=== PATIENT | female | born 1950 | race Caucasian/White ===

== ENCOUNTER 2017-08-04 10:15 | Outpatient (RCR) | payer OTHER, SELFPAY ==
--- NOTE | 2017-07-12 11:32 | PT.OTN ---
Current Diagnoses Abnormal posture (07/12/17) Weakness (07/12/17) Strain of muscle, fascia and tendon of lower back, subsequent encounter (07/12/17) Arthrodesis status (07/12/17) Transition note: On July 11, 2017 our therapy services consisting of Speech, Occupational, and Physical Therapy transitioned from the [employer] electronic documentation system to a new [employer] electronic documentation system.?? All documentation prior to July 11 can be found under [employer] saved data. From July 11 forward all medical record documentation will be in [employer] 6.1.
--- NOTE | 2017-07-12 16:12 | PT.OTN ---
Current Diagnoses Abnormal posture (07/12/17) Weakness (07/12/17) Strain of muscle, fascia and tendon of lower back, subsequent encounter (07/12/17) Arthrodesis status (07/12/17) Physical Therapy Treatment Note PT-OP-A Visit Information Start: 07/12/17 15:30 Freq: Status: Active Protocol: Activity Type Activity Date Activity User E-Sign Co-Sign Detail Recorded Client Recorded Date Recorded By Document 07/12/17 15:32 [facility] [email or web address] 07/12/17 16:01 [facility] 07/12/17 15:32 Out-Patient Physical Therapy Visit Information [Visit Information] -Visit Type Progress Note -Visit Note visit -Visit Start Time 11:45 -Visit Stop Time 12:25 -Total Visit Minutes 40 -Number of LOAN DOCUMENTS CLOSER Visits 1 -Visit Number 15 PT-OP-C Subjective Start: 07/12/17 15:30 Freq: Status: Active Protocol: Activity Type Activity Date Activity User E-Sign Co-Sign Detail Recorded Client Recorded Date Recorded By Document 07/12/17 15:32 [facility] [email or web address] 07/12/17 16:01 [facility] 07/12/17 15:32 OP-PT Subjective [Patient Comments] -Patient Comments No new complaints -Patient Reported Progress Same PT-OP-S Aquatic Treatment Start: 07/12/17 15:30 Freq: Status: Active Protocol: Activity Type Activity Date Activity User E-Sign Co-Sign Detail Recorded Client Recorded Date Recorded By Document 07/12/17 15:32 TMS [email or web address] 07/12/17 16:01 [facility] 07/12/17 15:32 Aquatics Treatment [Pool Entry/Exit] -Pool Entry/Exit Method Stairs -Assistance Independent [Water Walking] Forwards -Water Level Chest Level -Walking Equipment Resistance Fins -Level of Assistance Independent [Lower Extremity Exercises] 3 -Details Hip Circumduction -Body Position Standing -Water Level Chest Level -Equipment Resistance Fins -Reps/Duration 20 2 -Details Hip Flexion -Body Position Standing -Water Level Chest Level -Equipment Resistance Fins 1 -Details Hip Abduction -Body Position Standing -Water Level Chest Level -Equipment Resistance Fins -Reps/Duration 20 [Lower Extremity Stretches] 6 -Details Calf stretch -Body Position Standing -Reps/Duration x1/30 seconds -Comments on step 5 -Details Quad stretch -Body Position Standing -Reps/Duration x2/30 seconds 4 -Details Hamstring -Body Position Standing -Water Level Chest Level -Equipment Small Noodle -Reps/Duration x2/ 30 seconds -Comments Including IT, hip AB [Upper Extremity Exercises] 7 -Details Shoulder Abduction -Body Position Standing -Water Level Chest Level -Reps/Duration x 10 -Comments Medium barbells [[place] Activities] -[place] Activities Bicycle [place] Hip Abduction/ Adduction Sit Kicks -Equipment Belt -Duration 8 rounds of 30 :30 -Comments Tethered PT-OP-T Assessment and Plan Start: 07/12/17 16:03 Freq: Status: Active Protocol: Activity Type Activity Date Activity User E-Sign Co-Sign Detail Recorded Client Recorded Date Recorded By Document 07/12/17 16:04 [facility] [email or web address] 07/12/17 16:12 [facility] 07/12/17 16:04 Physical Therapy Assessment [Assessment Summary] -Assessment Pt. needs frequent cues for posture. Pt . complained of tightness in low back at end of treatment, states this is normal for me . Enjoying being able to get some aerobic exercise in the pool. Physical Therapy Plan [Frequency and Duration] -Frequency of Treatment 2x/Week -Duration of Treatment 3 months from -Plan of Care Start Date 04/25/17 -Plan of Care End Date 07/22/17 [Next Visit Focus/Plan] -Next Visit Plan Continue to progress core strength, endurance.
--- NOTE | 2017-07-17 15:49 | PT.OTN ---
Current Diagnoses Abnormal posture (07/17/17) Weakness (07/17/17) Strain of muscle, fascia and tendon of lower back, subsequent encounter (07/17/17) Arthrodesis status (07/17/17) Physical Therapy Treatment Note PT-OP-A Visit Information Start: 07/12/17 15:30 Freq: Status: Active Protocol: Activity Type Activity Date Activity User E-Sign Co-Sign Detail Recorded Client Recorded Date Recorded By Document 07/17/17 15:26 [facility] [email or web address] 07/17/17 15:49 [facility] 07/17/17 15:26 Out-Patient Physical Therapy Visit Information [Visit Information] -Visit Type Treatment Note -Visit Note visits -Visit Start Time 11:00 -Visit Stop Time 11:45 -Total Visit Minutes 45 -Visit Number -Number of [employer] Visits 2 PT-OP-C Subjective Start: 07/12/17 15:30 Freq: Status: Active Protocol: Activity Type Activity Date Activity User E-Sign Co-Sign Detail Recorded Client Recorded Date Recorded By Document 07/17/17 15:26 [place] [id number] 07/17/17 15:49 [facility] 07/17/17 15:26 OP-PT Subjective [Patient Comments] -Patient Comments Pt. reports tightness in back is narrower, it's not as wide of a band. PT-OP-S Aquatic Treatment Start: 07/12/17 15:30 Freq: Status: Active Protocol: Activity Type Activity Date Activity User E-Sign Co-Sign Detail Recorded Client Recorded Date Recorded By Document 07/17/17 15:26 [facility] [email or web address] 07/17/17 15:49 [facility] 07/17/17 15:26 Aquatics Treatment [Pool Entry/Exit] -Pool Entry/Exit Method Stairs -Assistance Independent [Water Walking] Forwards -Water Level Chest Level -Walking Equipment Resistance Fins -Level of Assistance Independent [Lower Extremity Exercises] 3 -Details Hip Circumduction -Body Position Standing -Water Level Chest Level -Equipment Resistance Fins -Reps/Duration 20 2 -Details Hip Flexion -Body Position Standing -Water Level Chest Level -Equipment Resistance Fins 1 -Details Hip Abduction -Body Position Standing -Water Level Chest Level -Equipment Resistance Fins -Reps/Duration 20 [Lower Extremity Stretches] 6 -Details Calf stretch -Body Position Standing -Reps/Duration x1/30 seconds -Comments on step 4 -Details Hamstring -Body Position Standing -Water Level Chest Level -Equipment Small Noodle -Reps/Duration x2/ 30 seconds -Comments Including IT, hip AB [Upper Extremity Exercises] 7 -Details Shoulder Abduction/horiz . AB/AD -Body Position Standing, unilateral and bilateral -Water Level Chest Level -Reps/Duration x 10 -Comments Closed paddles [Spinal Exercises] 1 -Details [place] Stabilization -Water Level [place] -Equipment Medium barbells [[place] Activities] -[place] Activities Bicycle Cross [place] Hip Abduction/ Adduction Sit Kicks -Equipment Belt -Duration 8 rounds of 30 :30 -Comments Tethered PT-OP-T Assessment and Plan Start: 07/12/17 16:03 Freq: Status: Active Protocol: Activity Type Activity Date Activity User E-Sign Co-Sign Detail Recorded Client Recorded Date Recorded By Document 07/17/17 15:26 [facility] [email or web address] 07/17/17 15:49 [facility] 07/17/17 15:26 Physical Therapy Assessment [Assessment Summary] -Assessment Pt. needs cues to stay on task , quite talkative. No complaints of pain with exercises, tightness in back diminishing. Physical Therapy Plan [Frequency and Duration] -Frequency of Treatment 2x/Week -Duration of Treatment 3 months from -Plan of Care Start Date 04/25/17 -Plan of Care End Date 07/22/17 [Next Visit Focus/Plan] -Next Visit Plan Continue to progress core strength, endurance.
--- NOTE | 2017-07-21 16:30 | PT.OTN ---
Current Diagnoses Abnormal posture (07/21/17) Weakness (07/21/17) Strain of muscle, fascia and tendon of lower back, subsequent encounter (07/21/17) Arthrodesis status (07/21/17) Physical Therapy Treatment Note PT-OP-A Visit Information Start: 07/12/17 15:30 Freq: Status: Active Protocol: Document 07/21/17 16:19 [facility] (Rec: 07/21/17 16:30 [facility] [id number]) Out-Patient Physical Therapy Visit Information Visit Information Visit Type Treatment Note Visit Note Visit Start Time 11:45 Visit Stop Time 12:30 Total Visit Minutes 45 Visit Number PT-OP-C Subjective Start: 07/12/17 15:30 Freq: Status: Active Protocol: Document 07/21/17 16:19 [facility] (Rec: 07/21/17 16:30 [facility] [id number]) OP-PT Subjective Patient Comments Patient Comments no new c/o. Reports aquatic PT is helpful PT-OP-S Aquatic Treatment Start: 07/12/17 15:30 Freq: Status: Active Protocol: Document 07/21/17 16:19 [facility]AK (Rec: 07/21/17 16:30 [facility] [id number]) Aquatics Treatment Pool Entry/Exit Pool Entry/Exit Method Stairs Assistance Independent Water Walking Marching Water Level Chest Level Walking Equipment Resistance Fins Sideways Water Level Chest Level Walking Equipment Resistance Fins Level of Assistance Verbal Cues Comments increased speed Backwards Water Level Chest Level Walking Equipment Resistance Fins: lg Level of Assistance Verbal Cues Forwards Water Level Chest Level Walking Equipment Resistance Fins: lg Level of Assistance Verbal Cues Comments jogging Lower Extremity Exercises 3 Details Hip Circumduction Body Position Standing Water Level Chest Level Equipment Resistance Fins Reps/Duration 20 2 Details Hip Flexion Body Position Standing Water Level Chest Level Equipment Resistance Fins Lower Extremity Stretches 4 Details Hamstring Body Position Standing Water Level Chest Level Equipment Small Noodle Reps/Duration x2/ 30 seconds Comments Including IT, hip AB Upper Extremity Exercises 7 Details shld hor ab/ad, flex/ext Body Position Standing Water Level Chest Level Reps/Duration x10 anders, unil Comments Closed paddles Spinal Exercises 1 Details [place] Stabilization Water Level [place] Equipment Medium barbells [place] Activities [place] Activities Cross Country Running Hip Abduction/Adduction Sit Kicks Equipment Belt Duration 8 rounds of 30:30 Comments Tethered PT-OP-T Assessment and Plan Start: 07/12/17 16:03 Freq: Status: Active Protocol: Document 07/21/17 16:19 [facility] (Rec: 07/21/17 16:30 [facility] [id number]) Physical Therapy Assessment Assessment Summary Assessment Progressing with increased resistance, increased speed of water walking Physical Therapy Plan Frequency and Duration Frequency of Treatment 2x/Week Duration of Treatment 3 months from 04/25/17 Plan of Care Start Date 04/25/17 Plan of Care End Date 07/22/17 Next Visit Focus/Plan Next Visit Plan Progression of aquatic exercises for pain management, strengthening, dynamic lumbar stabilization. Consider progression to swim strokes
--- NOTE | 2017-08-04 15:45 | PT.OTN ---
Current Diagnoses Abnormal posture (08/04/17) Weakness (08/04/17) Strain of muscle, fascia and tendon of lower back, subsequent encounter (08/04/17) Arthrodesis status (08/04/17) Physical Therapy Treatment Note PT-OP-A Visit Information Start: 07/12/17 15:30 Freq: Status: Active Protocol: Document 08/04/17 11:00 [facility] (Rec: 08/04/17 15:45 [facility] [id number]) Out-Patient Physical Therapy Visit Information Visit Information Visit Type Treatment Note Visit Note Visit Start Time 10:15 Visit Stop Time 11:00 Total Visit Minutes 45 Visit Number Number of BARTACKER Visits 0 PT-OP-C Subjective Start: 07/12/17 15:30 Freq: Status: Active Protocol: Document 08/04/17 11:00 [facility]AK (Rec: 08/04/17 15:45 [facility] [id number]) OP-PT Subjective Patient Comments Patient Comments Glad to return to aquatic PT after being gone. PT-OP-S Aquatic Treatment Start: 07/12/17 15:30 Freq: Status: Active Protocol: Document 08/04/17 11:00 [facility]AK (Rec: 08/04/17 15:45 [facility] [id number]) Aquatics Treatment Pool Entry/Exit Pool Entry/Exit Method Stairs Assistance Independent Water Walking Lunge Walk Water Level Chest Level Walking Equipment Resistance Fins: lg Level of Assistance Verbal Cues Marching Water Level Chest Level Walking Equipment Resistance Fins; large Sideways Water Level Chest Level Walking Equipment Resistance Fins; large Level of Assistance Verbal Cues Comments increased speed Backwards Water Level Chest Level Walking Equipment Resistance Fins: lg Level of Assistance Verbal Cues Forwards Water Level Chest Level Walking Equipment Resistance Fins: lg Level of Assistance Verbal Cues Comments jogging Lower Extremity Exercises 3 Details Hip Circumduction Body Position Standing Water Level Chest Level Equipment Resistance Fins;lg Reps/Duration 20 2 Details Hip Flexion Body Position Standing Water Level Chest Level Equipment Resistance Fins; lg 1 Details Hip Abduction Body Position Standing Water Level Chest Level Equipment Resistance Fins: lg Reps/Duration 20 Lower Extremity Stretches 6 Details Calf stretch Body Position Standing Reps/Duration x1/30 seconds Comments at wall 4 Details Hamstring Body Position Standing Water Level Chest Level Equipment Small Noodle Reps/Duration x2/ 30 seconds Comments Including IT, hip AB Spinal Exercises 1 Details [place] Stabilization Water Level Accident Equipment Medium barbells Accident Activities Accident Activities Cross [place] Running Hip Abduction/Adduction Sit Kicks Equipment Belt Duration 12 rounds of 30:30 Comments Tethered PT-OP-T Assessment and Plan Start: 07/12/17 16:03 Freq: Status: Active Protocol: Document 08/04/17 11:00 [facility] (Rec: 08/04/17 15:45 [facility] [id number]) Physical Therapy Assessment Assessment Summary Assessment Patient needs frequent cues due to distractability, but overall progressing with aquatic exercise program. Physical Therapy Plan Frequency and Duration Frequency of Treatment 2x/Week Duration of Treatment 3 months from 04/25/17 Plan of Care Start Date 04/25/17 Plan of Care End Date 07/22/17 Next Visit Focus/Plan Next Visit Plan Next visit assess patient progress with aquatic exercise , determine need for furthre aquatic PT; patient to schedule in approx 3-4 wks. Please Sign and Return: I have reviewed this Plan of Care and certify that the skilled therapy services above are required to meet the patient???s needs. Physician Signature Date Printed Name and Credentials Clinical Instructor Signature Printed Name and Credentials
--- NOTE | 2017-10-11 09:07 | PT.OPDS ---
Current Diagnoses Abnormal posture (08/04/17) Weakness (08/04/17) Strain of muscle, fascia and tendon of lower back, subsequent encounter (08/04/17) Arthrodesis status (08/04/17) Provider Visit Care Team Role Provider Type Bruce Bland MD Family Provider Physician Primary Care Provider Specialty: Internal Medicine Address: [address] [place] [address], [id number] Email: Tremaine Cline MD Attending Provider Physician Specialty: Orthopedic Surgery Address: [address] [place] [address], [id number] Email: [email or web address] Visit Number Visit Number Discharge Summary PT-OP-C Subjective Start: 07/12/17 15:30 Freq: Status: Active Protocol: Document 08/04/17 11:00 [facility] (Rec: 08/04/17 15:45 [facility] [id number]) OP-PT Subjective Patient Comments Patient Comments Glad to return to aquatic PT after being gone. PT-OP-T Assessment and Plan Start: 07/12/17 16:03 Freq: Status: Active Protocol: Document 10/11/17 09:03 [facility]AK (Rec: 10/11/17 09:07 [facility] [id number]) Physical Therapy Assessment Progress Towards Goals Progress Towards Goals Goals Met Physical Therapy Plan Discharge Physical Therapy Discharge Reasons [place] in Progress Discharge Comments Patient able to perform aquatic exercise indep. Next Visit Focus/Plan Next Visit Plan Patient last PT appointment was canceled but she is able to continue with aquatic exercise indep and will be discharged from PT.
== END 2017-10-26 10:10 ==
LOC: PHYS 10:15
PROVIDERS: Family Provider Internal Medicine; PCP Internal Medicine; Visit Provider Orthopaedic Surgery
DX: Z98.1 Arthrodesis status (principal); S39.012D Strain of muscle, fascia and tendon of lower back, subsequent encounter; R53.1 Weakness; R29.3 Abnormal posture
CPT/HCPCS: 97113

== ENCOUNTER → 2019-11-22 14:39 | Outpatient (CLI) | payer OTHER, SELFPAY ==
--- NOTE | 2019-11-22 14:48 | DI.CT.S_ITS ---
PROCEDURE: CT LUMBAR SPINE WO CON INDICATIONS: Other kyphosis, thoracolumbar region TECHNIQUE: Noncontrast 3 mm thick sections acquired from the T12 level to the sacrum. Sagittal and coronal reformats were constructed. For radiation dose reduction, the following was used: automated exposure control. COMPARISON: [facility], CT, L-SPINE WITHOUT CONTRAST, 01/07/2013, 13:41. FINDINGS: Image quality: Excellent. Bones: There is posterior fusion from T10 through S1. T10 is not fully included within field of view on this examination. All hardware is intact. Left pedicular screw at L1 is noted with distal tip in the mid vertebral body. There is trace retrolisthesis of L5 on S1. There has been bridging anterior osteophytes are present at L4-5. Interval progression of areas of cystic change in sclerosis within the lumbar vertebral bodies compared to prior exam. Disc bulges are present at L1-L2, L2-3, L3-4, L4-5. There is moderate spinal stenosis L1-2, appearing less prominent, moderate to severe L2-3, unchanged, moderate L3-4, severe L4-5 are unchanged. There is moderate left and [id number]-rb-fjyjvcal right foraminal narrowing L1-L2 slightly progressive, moderate left L2-3, mild bilateral L3-4, unchanged, moderate to severe right L4-5, progressive, severe bilateral L5-S1, progressive. Soft tissues: No retroperitoneal masses or hematomas. Visualized aorta is normal in caliber. IMPRESSION: 1. Multilevel postsurgical and degenerative changes as above. 2. Multilevel spinal stenosis with most prominent areas at L3-4 and L4-5 secondary to disc bulge with facet/ligamentum flavum arthropathy. 3. Multilevel foraminal narrowing most severe at L5-S1, progressive secondary to facet arthropathy. Dictated by: Donna Prescott M.D. on 11/22/2019 at 16:42 Approved by: Donna Prescott M.D. on 11/22/2019 at 16:52
--- NOTE | 2019-11-22 14:51 | DI.CT.S_ITS ---
PROCEDURE: CT THORACIC SPINE WO CON INDICATIONS: Other kyphosis, thoracolumbar region TECHNIQUE: Noncontrast 3 mm thick sections acquired through the region of interest in the thoracic spine. Sagittal and coronal reformats were then constructed. For radiation dose reduction, the following was used: automated exposure control. COMPARISON: [facility], CT, CT LUMBAR SPINE WO CON, 11/22/2019, 14:49. [facility], CR, L-SPINE 2-3 VIEWS, 01/31/2017, 11:38. [facility], CT, L-SPINE WITHOUT CONTRAST, 01/07/2013, 13:41. CR, L-SPINE 2-3 VIEWS, 01/17/2012, 11:11. FINDINGS: Image quality: Excellent. Bones: There is presence of kyphosis. There is trace anterolisthesis T5 on T6.. No acute vertebral body compression fractures. No suspicious sclerotic or lytic bony lesions. Central spinal canal is of normal overall caliber. Partially visualized posterior fusion is present from T10 through L1. Hardware is intact. There is a minimal appearance of periprosthetic lucency of the left pedicular screw at T10. Both the left and right pedicular screws at T10 terminate within the midportion of the vertebral body. Similar appearance is noted within the left pedicular screw at L1. Multi level areas of moderate to severe disc space narrowing are present throughout the lumbar spine. Prominent anterior bridging osteophytes are most notable at T7, T8, T9 and T10. Schmorl's nodes are noted along the inferior endplates of T10, T11 and T12 as well as superior endplate T12. Minimal disc osteophyte complex is noted at T6-7, T7-8, T8-9, T9-10, T10-11, T12-L1. Possible mild spinal stenosis is present at T9-10 partially obscured by artifact, T10-11. There is appearance of mild bilateral foraminal narrowing at T6-7, right T10-11, mild left T12-L1. Soft tissues: No paravertebral masses or hematomas. Visualized posteromedial lungs appear clear. Prominent hiatal hernia is present. IMPRESSION: 1. Posterior fusion changes as above. 2. Mild multilevel disc bulges and spinal stenosis. Dictated by: Donna Prescott M.D. on 11/22/2019 at 16:33 Approved by: Donna Prescott M.D. on 11/22/2019 at 16:42
== END ==
PROVIDERS: Family Provider Internal Medicine; PCP Internal Medicine; Referring Provider Orthopaedic Surgery; Visit Provider Orthopaedic Surgery
DX: M40.295 Other kyphosis, thoracolumbar region (principal); M51.24 Other intervertebral disc displacement, thoracic region; M48.04 Spinal stenosis, thoracic region; M48.061 Spinal stenosis, lumbar region without neurogenic claudication; M48.07 Spinal stenosis, lumbosacral region; M51.26 Other intervertebral disc displacement, lumbar region; M47.816 Spondylosis without myelopathy or radiculopathy, lumbar region; M47.817 Spondylosis without myelopathy or radiculopathy, lumbosacral region; Z98.1 Arthrodesis status
CPT/HCPCS: 72128; 72131

== ENCOUNTER → 2020-07-08 19:12 | Outpatient (ROUT) | payer OTHER, SELFPAY ==
[2020-07-08 19:49] LABS: Add Manual Diff / Slide Review NO; Basophils Absolute Auto 0 /uL (0-100); Basophils Percent Auto 1.2 % (0-2); Eosinophils Absolute Auto 100 /uL (0-450); Eosinophils Percent Auto 2.3 % (2-4); Hematocrit 38.5 % (36-46); Hemoglobin 12.6 g/dL (12.0-16.0); Lymphocytes Absolute Auto 1700 /uL (1100-4500); Lymphocytes Percent Auto 40.9 % (25-40); Mean Corpuscular HGB Conc 32.7 % (30-36); Mean Corpuscular Hemoglobin 27.4 PG (26-34); Mean Corpuscular Volume 83.9 fL (80-100); Monocytes Absolute Auto 500 /uL (0-900); Monocytes Percent Auto 10.7 % (3-14); Neutrophils Absolute Auto 1900 /uL (1500-7000); Neutrophils Percent Auto 44.9 % (50-75); Platelet Count 180 X10^3/uL (150-400); Red Blood Cell Count 4.59 X10^6/uL (4.0-5.2); Red Cell Distribution Width 14.2 % (11.6-14.8); White Blood Cell Count 4.2 X10^3/uL (4.5-11.0)
[2020-07-08 20:13] LABS: HEMOLYSIS < 15 (0-50); Iron 105 ug/dL (37-170)
[2020-07-08 20:23] LABS: Hemoglobin A1C% w Est Avg Glu 5.1 % (4.0-6.0)
[2020-07-08 20:25] LABS: Aspartate Aminotransferase 31 IU/L (14-36); BUN Creatinine Ratio 25.9 (6-22); Blood Urea Nitrogen 15 mg/dL (7-17); Calcium 9.8 mg/dL (8.4-10.2); Carbon Dioxide 29 mmol/L (22-32); Chloride 100 mmol/L (98-107); Cholesterol 186 mg/dL (140-199); Estimated Glomerular Filt Rate > 60.0 mL/min (>60); Glucose 97 mg/dL (80-110); HDL Cholesterol 101 mg/dL (40-60); HEMOLYSIS < 15 (0-50); LDL Cholesterol Calculated 72 mg/dL (<100); Potassium 3.6 mmol/L (3.4-5.1); Sodium 137 mmol/L (137-145); Triglycerides 66 mg/dL (35-150)
[2020-07-08 20:29] LABS: Percent Iron Saturation 23 % (15-50); Total Iron Binding Capacity 463 ug/dL (265-497); Transferrin 377 mg/dL (206-381)
[2020-07-08 20:45] LABS: TSH w/ Reflex to FT4 0.24 uIU/mL (0.47-4.68)
[2020-07-08 20:54] LABS: Ferritin 11 ng/mL (11-264)
[2020-07-08 21:09] LABS: Free T4, Direct Thyroxine 0.94 ng/dL (0.78-2.19)
== END ==
PROVIDERS: Family Provider Internal Medicine; PCP Internal Medicine; Visit Provider Internal Medicine
DX: I10 Essential (primary) hypertension (principal); E78.2 Mixed hyperlipidemia; R73.01 Impaired fasting glucose; E03.9 Hypothyroidism, unspecified; D50.9 Iron deficiency anemia, unspecified
CPT/HCPCS: 80048; 80061; 82728; 83036; 83540; 83550; 84439; 84443; 84450; 85025

== ENCOUNTER → 2023-02-17 09:21 | Outpatient (CLI) | payer OTHER, SELFPAY ==
[2023-02-17 10:04] LABS: Hemoglobin 12.7 g/dL (12.0-16.0); Mean Corpuscular HGB Conc 33.3 % (30-36); Mean Corpuscular Hemoglobin 26.2 PG (26-34); Mean Corpuscular Volume 78.5 fL (80-100); Platelet Count 187 X10^3/uL (150-400); Red Blood Cell Count 4.84 X10^6/uL (4.0-5.2); White Blood Cell Count 3.2 X10^3/uL (4.5-11.0)
[2023-02-17 10:42] LABS: Alanine Aminotransferase 18 IU/L (<35); Albumin 4.3 g/dL (3.5-5.0); Albumin Globulin Ratio 1.3 (1.0-2.8); Alkaline Phosphatase 59 U/L (38-126); Aspartate Aminotransferase 29 IU/L (14-36); BUN Creatinine Ratio 33.3 (6-22); Bilirubin Total 0.6 mg/dL (0.2-1.3); Blood Urea Nitrogen 21 mg/dL (7-17); Calcium 10.1 mg/dL (8.4-10.2); Carbon Dioxide 30 mmol/L (22-32); Chloride 101 mmol/L (98-107); Cholesterol 185 mg/dL (140-199); Estimated Glomerular Filt Rate > 60 mL/min (>60); Globulin 3.2 g/dL (1.7-4.1); Glucose 97 mg/dL (80-110); HDL Cholesterol 78 mg/dL (40-60); HEMOLYSIS < 15 (0-50); LDL Cholesterol Calculated 91 mg/dL (<100); Potassium 3.9 mmol/L (3.4-5.1); Sodium 136 mmol/L (137-145); Total Protein 7.5 g/dL (6.3-8.2); Triglycerides 78 mg/dL (35-150)
[2023-02-17 10:56] LABS: TSH w/ Reflex to FT4 0.86 uIU/mL (0.47-4.68)
== END ==
PROVIDERS: Family Provider Internal Medicine; PCP Internal Medicine; Referring Provider Internal Medicine; Visit Provider Internal Medicine
DX: E03.9 Hypothyroidism, unspecified (principal); I10 Essential (primary) hypertension; E78.2 Mixed hyperlipidemia
CPT/HCPCS: 36415; 80053; 80061; 84443; 85027

== ENCOUNTER → 2023-02-28 10:22 | Outpatient (CLI) | payer OTHER, SELFPAY ==
--- NOTE | 2023-02-28 10:24 | DI.RAD.S_ITS ---
Bone Density Report Name: ZEYNEP SPARKS Age: 72 Sex: Female Ethnicity: White Date of : 1950 Indication: postmenopausal; screening for osteoporosis; secondary osteoporosis; Referring Provider: BRENDA AYALA Study: Bone densitometry was performed. Exam Date: February 28, 2023 Accession number: [id number] Bone Density: Region BMD T-score Z-score Classification Femoral Neck (Left) 0.747 -0.9 1.0 Normal Total Hip (Left) 0.799 -1.2 0.5 Osteopenia Femoral Neck (Right) 0.775 -0.7 1.3 Normal Total Hip (Right) 0.765 -1.5 0.2 Osteopenia Total Hip Mean 0.782 -1.4 0.4 Osteopenia Total Forearm (Left) 0.519 -1.1 1.1 Osteopenia 1/3 Forearm (Left) 0.632 -1.0 1.3 Normal UD Forearm (Left) 0.403 -0.7 1.0 Normal World Health Organization criteria for BMD impression classify patients as: Normal (T-score at or above -1.0), Osteopenia (T-score between -1.0 and -2.5), or Osteoporosis (T-score at or below -2.5). 10-year Fracture Risk(1): Major Osteoporotic Fracture 9.2% Hip Fracture 1.1% Reported Risk Factors: [place] (), Neck BMD=0.747, BMI=26.8, secondary osteoporosis (1) FRAX(R) Version 3.08. Fracture probability calculated for an untreated patient. Fracture probability may be lower if the patient has received treatment. Previous Exams: -- Region Exam Age BMD T-score BMD Change BMD Change Date g/cm2 vs Baseline vs Previous -- Total Hip(Left) 02/28/2023 72 0.799 -1.2 -0.042 (-5.0%)# -0.042 (-5.0%)# 01/13/2017 66 0.841 -0.8 Total Hip(Right) 02/28/2023 72 0.765 -1.5 -0.097 (-11.3%)# -0.097 (-11.3%)# 01/13/2017 66 0.862 -0.7 -- *Denotes significance at 95% confidence level, LSC for Total Hip = 0.027 g/cm2 # Denotes dissimilar scan types or analysis methods Impression: The patient has low bone mass, based on the Right Total Hip T-score. The patient has an estimated ten-year risk of hip fracture of 1.1% and an estimated ten-year risk of major fracture of 9.2%, based on the WHO FRAX algorithm. No significant bone loss was observed. Discussion: BONE DENSITY IS LOW AT ONE OR MORE SKELETAL SITES. This patient's lowest T-score is low at one or more skeletal sites. It meets the World Health Organization's (WHO) criteria for low bone mass (T-score between -1.0 and -2.5). The patient's 10-year risk of fracture as calculated by FRAX is less than the threshold where pharmacological therapy is recommended by the National Osteoporosis Foundation (NOF). However, all treatment decisions require clinical judgment and consideration of individual patient factors, including patient preferences, comorbidities, previous drug use, risk factors not captured in the FRAX model (e.g., frailty, falls, vitamin D deficiency, increased bone turnover, interval significant decline in bone density) and possible under or overestimation of fracture risk by FRAX. The patient should follow a healthful lifestyle (good nutrition with adequate calcium and vitamin D, and appropriate weight-bearing exercise). Follow-Up: Consider repeating this study in 2 to 3 years to reassess this patient's status, or sooner if there is some new clinical indication. Reported by: ALESHA HOWARD M.D. on 02/28/2023 11:00:00 AM.
== END ==
PROVIDERS: Family Provider Internal Medicine; PCP Internal Medicine; Referring Provider Internal Medicine; Visit Provider Internal Medicine
DX: M85.89 Other specified disorders of bone density and structure, multiple sites (principal)
CPT/HCPCS: 77080; 77081

== ENCOUNTER → 2024-01-23 14:05 | Outpatient (CLI) | payer OTHER, SELFPAY | PROVIDERS: Family Provider Internal Medicine; PCP Internal Medicine; Visit Provider Physician Assistant Surgical | DX: R30.0 Dysuria (principal); R35.0 Frequency of micturition; R82.998 Other abnormal findings in urine | CPT/HCPCS: 87077; 87086; 87186 ==

== ENCOUNTER → 2024-12-26 10:04 | Outpatient (CLI) | payer OTHER, SELFPAY ==
[2024-12-26 11:24] LABS: Blood Urea Nitrogen 15 mg/dL (7-17); Calcium 9.8 mg/dL (8.4-10.2); Carbon Dioxide 30 mmol/L (22-32); Chloride 104 mmol/L (98-107); Cholesterol 176 mg/dL (140-199); Estimated Glomerular Filt Rate > 60 mL/min (>60); Glucose 83 mg/dL (70-99); HDL Cholesterol 107 mg/dL (40-60); HEMOLYSIS < 15 (0-50); Potassium 4.2 mmol/L (3.4-5.1); Sodium 138 mmol/L (137-145); Triglycerides 57 mg/dL (35-150)
[2024-12-26 11:58] LABS: TSH w/ Reflex to FT4 0.87 uIU/mL (0.47-4.68)
== END ==
PROVIDERS: Family Provider Internal Medicine; PCP Internal Medicine; Referring Provider Internal Medicine; Visit Provider Internal Medicine
DX: E03.9 Hypothyroidism, unspecified (principal); E78.2 Mixed hyperlipidemia; I10 Essential (primary) hypertension
CPT/HCPCS: 36415; 80048; 80061; 84443; 84450

== ENCOUNTER → 2025-01-02 07:47 | Outpatient (CLI) | payer OTHER, SELFPAY ==
--- NOTE | 2025-01-02 07:48 | DI.CT.S_ITS ---
PROCEDURE: CT HEAD/BRAIN WO CON INDICATIONS: fall, head injury TECHNIQUE: Noncontrast 4.5 mm thick angled axial sections acquired from the foramen magnum to the vertex, with coronal and sagittal reformats. For radiation dose reduction, the following was used: automated exposure control, adjustment of mA and/or kV according to patient size. COMPARISON: None. FINDINGS: Image quality: Diagnostic. CSF spaces: Basal cisterns are patent. No extra-axial fluid collections. The ventricles are symmetric in size and shape. Brain: No intracranial bleeds or mass effect. There is cerebral volume loss, with resultant ventricular and sulcal prominence. There are periventricular and deep white matter chronic small vessel ischemic changes. There is intracranial internal carotid artery atherosclerosis. Skull and face: Calvarium and visualized facial bones appear intact, without suspicious lesions. Sinuses: Visualized sinuses and mastoids are clear. IMPRESSION: No acute intracranial pathology. Dictated by: Kane Bueno M.D. on 01/02/2025 at 9:41 Approved by: Kane Bueno M.D. on 01/02/2025 at 9:42
== END ==
LOC: CT 07:48
PROVIDERS: Family Provider Internal Medicine; PCP Internal Medicine; Referring Provider Internal Medicine; Visit Provider Internal Medicine
DX: S06.0XAA Concussion with loss of consciousness status unknown, initial encounter (principal); W19.XXXA Unspecified fall, initial encounter
CPT/HCPCS: 70450